=== PATIENT | female | born 1965 | race Caucasian/White ===

== ENCOUNTER 2016-09-07 09:39 | Emergency (ER) | payer BC ==
[~2016-09-07] VITALS: Ht 162.6 cm; Wt 68.0 kg
--- NOTE | ~2016-09-07 | EKG ---
[place] [address] [address] [place] [place] [address] ELECTROCARDIOGRAM REPORT Name: FRANCISCA OLIVEIRA Room #: [id number] Admission: 09/07/16 Attend Phys: Discharge: 09/07/16 Date of : 69 Report #: [id number] THIS REPORT FOR: //name// [facility] ED Test Date: 2016-09-07 Test Time: 10:00:13 Pat Name: FRANCISCA OLIVEIRA Department: Room: Gender: F [employer]: damaso : 1965 Requested By: Elaina Blakely Order Number: [id number] MD: Nitesh Traylor Measurements Intervals [place] Rate: 75 P: 40 DC: 172 QRS: 3 QRSD: 130 T: 9 QT: 385 QTc: 430 Interpretive Statements Sinus rhythm Incomplete Right bundle branch block Left ventricular hypertrophy Baseline wander in lead(s) V6 Compared to ECG 03/16/2012 18:14:20 Right bundle-branch block now present Incomplete right bundle-branch block no longer present Myocardial infarct finding no longer present Electronically Signed On 09-07-2016 14:18:46 CDT by Nitesh Traylor [email or web address] <ELECTRONICALLY SIGNED> By: Nitesh Traylor MD 09/07/16 1418 1000 1000 Nitesh Traylor MD /EPI
[~2016-09-07 09:39] MED LIST: FLAGYL500 MG PO; IBUPROFEN 800800 MG PO; LORTABELXR PO; MECLIZINE HCL25 M1 PO; PHENERGAN 25 MG25 M1 PO; TAMIFLU PO; ZOFRAN 4 MG ORAL4 M1 DIS
[2016-09-07 09:59] LABS: ABSOLUTE NEUTROPHILS 4.1 thou/uL (1.4-8.2); BASOPHILS 0.6 % (0.0-2.0); EOSINOPHILS 0.8 % (0.0-3.0); HEMATOCRIT 41.5 % (37.0-47.0); HEMOGLOBIN 14.3 gm/dL (12.0-15.0); LYMPHOCYTES 42.8 % (24.0-44.0); MCH 31.1 pg (26.0-34.0); MCHC 34.5 g/dL (28.0-37.0); MCV 90.2 fL (80.0-100.0); MONOCYTES 6.3 % (1.0-8.0); PLATELET COUNT 304 thou/uL (150-400); POLYS 49.5 % (36.0-66.0); RDW 13.3 % (10.5-14.5); WBC 8.4 thou/uL (4.0-11.0)
[2016-09-07 10:09] LABS: MANUAL DIFF NO
[2016-09-07 10:10] LABS: ANION GAP 11 mmol/L (7-16); BUN 13 mg/dL (7-18); CALCIUM 8.6 mg/dL (8.5-10.1); CHLORIDE 101 mmol/L (98-107); CO2 26 mmol/L (21-32); CREATININE 0.7 mg/dL (0.6-1.0); GLUCOSE 119 mg/dL (74-106); POTASSIUM 3.7 mmol/L (3.5-5.1); SODIUM 138 mmol/L (136-145)
[2016-09-07 10:18] LABS: TROPONIN-I < 0.04 ng/mL (<0.04-0.07)
[2016-09-07] MEDS ORDERED: PHENERGAN 25 MG25 M1 PO (12:14)
[2016-09-07 12:30] VITALS: BP 120/72
== END 2016-09-07 12:33 | disposition home or self-care (01) ==
LOC: ER 09:39
PROVIDERS: Emergency Medicine
DX: G43.909 Migraine, unspecified, not intractable, without status migrainosus (principal); R19.7 Diarrhea, unspecified; R55 Syncope and collapse; R11.2 Nausea with vomiting, unspecified